=== PATIENT | male | born 1985 | race Caucasian/White ===

== ENCOUNTER → 2021-09-12 | Outpatient (CLI) | payer OTHER ==
[~2021-09-12] VITALS: Ht 180.3 cm; Wt 79.5 kg
[2021-09-12 17:21] VITALS: BP 127/94
[2021-09-12 17:41] LABS: HEMATOCRIT 42.3 % (42.0-52.0); HEMOGLOBIN 14.4 g/dL (13.5-18.0); MEAN PLATELET VOLUME 9.6 fl (7.4-10.4); RED BLOOD COUNT 4.73 M/mm3 (4.20-5.60); RED CELL DISTRIBUTION WIDTH 12.8 % (11.5-14.5); WHITE BLOOD COUNT 8.3 K/mm3 (4.8-10.8)
[2021-09-12 17:45] LABS: ALBUMIN 4.5 g/dL (3.5-5.0); POTASSIUM 4.2 mmol/L (3.5-5.1); SODIUM 140 mmol/L (136-145)
[2021-09-12 17:46] LABS: CALCIUM 9.7 mg/dL (8.3-10.5)
[2021-09-12 17:47] LABS: GLUCOSE 94 mg/dL (75-110); TOTAL PROTEIN 7.4 g/dL (6.4-8.3)
[2021-09-12 17:48] LABS: CARBON DIOXIDE 25 mmol/L (22-29)
[2021-09-12 17:49] LABS: TOTAL BILIRUBIN 0.2 mg/dL (0.2-1.2)
[2021-09-12 17:53] LABS: AST-SGOT 15 U/L (5-34)
[2021-09-12 17:54] LABS: ALT/SGPT 18 U/L (0-55); D-DIMER 0.22 mg/L FEU (0.15-0.50)
[2021-09-12 18:02] LABS: TROPONIN-I < 0.03 ng/mL (<0.030)
[2021-09-12 18:32] VITALS: BP 126/90
== END ==
LOC: LAB 17:13
PROVIDERS: Nurse Practitioner
DX: R00.0 Tachycardia, unspecified (principal); Z20.822 Contact with and (suspected) exposure to COVID-19
CPT/HCPCS: J7030

== ENCOUNTER → 2024-11-09 | Outpatient (CLI) | payer OTHER | LOC: AMSURD 15:55 | DX: R00.0 Tachycardia, unspecified (principal) ==